=== PATIENT | male | born 1975 | race Hispanic/Latino ===

== ENCOUNTER 2023-01-15 01:45 | Emergency (ER) | payer SELFPAY ==
[2023-01-15] MEDS ORDERED: Diazepam 5 MG TAB ONE (02:08)
[2023-01-15] MEDS ORDERED: Ketorolac Tromethamine 30 MG/ML VIAL ONE (02:09)
[2023-01-15] MEDS ORDERED: Orphenadrine Citrate 60 MG/2 ML VIAL IM SCH (02:15)
== END 2023-01-15 03:22 | disposition home or self-care (01) ==
LOC: CSHERS 01:45
DX: M62.830 Muscle spasm of back (principal)
CPT/HCPCS: 96372; 99283; J1885; J2360